=== PATIENT | male | born 1975 | race Caucasian/White ===

== ENCOUNTER 2024-03-21 00:30 | Observation (INO) | payer OTHER ==
[2024-03-21] MEDS ORDERED: Ondansetron ODT 4 MG TAB PO PRN (01:58)
[2024-03-21] MEDS ORDERED: Acetaminophen 325 MG TAB PO PRN (01:58)
[2024-03-21 03:06] VITALS: BMI 31.0
[2024-03-21] MEDS ORDERED: Acetaminophen/Codeine 30-300mg Tablet PO PRN (03:25)
[2024-03-21] MEDS ORDERED: traMADol HCl 50 MG TAB PO PRN (03:25)
[2024-03-21] MEDS ORDERED: Dextrose 5% in Water 1,000 ML IV PRN (03:26)
[2024-03-21] MEDS ORDERED: Insulin Regular, Human 100 UNIT/ML 10 ML VIAL SC PRN (03:26)
[2024-03-21] MEDS ORDERED: Dextrose 50% Abboject 50 ML SYRINGE SLOW IVP PRN (03:26)
[2024-03-21] MEDS ORDERED: Glucagon 1 MG/ML KIT IM PRN (03:26)
[2024-03-21] MEDS: Ondansetron ODT 4 MG TAB PO SCH (05:36)
[2024-03-21 05:41] LABS: #Basophils 0.04 10x3/uL (0.0-0.2); %Basophils 0.6 % (0.0-1.0); %Eosinophils 3.1 % (0.0-10.0); %Lymphocytes 24.2 % (21.0-51.0); %Monocytes 8.2 % (0.0-10.0); %Neutrophils 63.6 % (42.0-75.0); Hematocrit 33.3 % (42.0-52.0); Hemoglobin 10.4 g/dL (14.0-18.0); Mean Corpuscular HGB CONC 31.2 g/dL (32.0-36.0); Mean Platelet Volume 10.5 fL (7.4-10.4); Platelet Count 362 10x3/uL (130-400); RBC Distribution Width 14.9 % (11.5-14.5); Red Blood Cell (RBC) Count 4.16 mill/uL (4.70-6.10)
[2024-03-21 06:46] LABS: ALT (SGPT) 34 U/L (8-55); AST (SGOT) 23 U/L (5-34); Albumin 3.6 g/dL (3.5-5.0); Alkaline Phosphatase 60 U/L (40-110); Anion Gap 14 mmol/L (10-20); BUN (Urea Nitrogen) 17 mg/dL (8.9-20.6); Bilirubin, Total 0.2 mg/dL (0.2-1.2); Calc. Creatinine Clearance 93 mL/min (70-130); Calcium 8.7 mg/dL (7.8-10.44); Carbon Dioxide 26 mmol/L (22-29); Chloride 106 mmol/L (98-107); Estimated GFR 67; Globulin 2.7 g/dL (2.4-3.5); Glucose 131 mg/dL (70-105); Potassium 3.7 mmol/L (3.5-5.1); Protein, Total 6.3 g/dL (6.0-8.3); Sodium 142 mmol/L (136-145)
[2024-03-21] MEDS ORDERED: Heparin 5,000 UNITS/ML VIAL SC SCH (09:00)
[2024-03-21] MEDS ORDERED: Famotidine 20 MG TAB PO SCH (09:00)
[2024-03-21] MEDS ORDERED: Insulin Glargine 30 UNITS/0.3 ML VIAL SC SCH (09:00)
[2024-03-21] MEDS: Methocarbamol 500 MG TAB PO SCH (10:23)
[2024-03-21] MEDS: Amlodipine 10 MG TAB PO SCH (10:23)
[2024-03-21] MEDS: Atorvastatin Calcium 40 MG TAB PO SCH (10:23)
[2024-03-21] MEDS: Lisinopril 20 MG TAB PO SCH (10:24)
[2024-03-21] MEDS: hydrALAZINE 25 MG TAB PO SCH (10:24)
[2024-03-21] MEDS: Hydrochlorothiazide 25 MG TAB PO SCH (10:24)
[2024-03-21] MEDS: Gabapentin 400 MG CAP PO SCH (10:25)
[2024-03-21] MEDS: Pantoprazole DR 40 MG TAB PO SCH (10:25)
[2024-03-21] MEDS: Insulin Glargine 30 UNITS/0.3 ML VIAL SC SCH (10:25)
[2024-03-21] MEDS: Carvedilol 3.125 MG TAB PO SCH (10:31)
[2024-03-21] MEDS: cloNIDine 0.1mg/24 Hour PATCH TD SCH (10:32)
[2024-03-21] MEDS: metFORMIN 500 MG TAB PO SCH (10:32)
[2024-03-21] MEDS: Lidocaine 4% Patch TD SCH (12:10)
[2024-03-21] MEDS: Insulin Regular, Human 100 UNIT/ML 10 ML VIAL SC PRN (12:10)
[2024-03-21 13:51] VITALS: BP 159/82; TEMP 98.8
[2024-03-21] MEDS ORDERED: Montelukast Sodium 10 mg Tablet PO SCH (21:00)
[2024-03-21] MEDS ORDERED: LIDOCAINE Patch Removal TOP SCH (23:45)
== END 2024-03-21 13:39 | disposition home or self-care (01) ==
LOC: MSONC 01:45
PROVIDERS: ADMIT Student in an Organized Health Care Education/Training Program; ATTEND Student in an Organized Health Care Education/Training Program
DX: M54.9 Dorsalgia, unspecified (principal); E11.319 Type 2 diabetes mellitus with unspecified diabetic retinopathy without macular edema; E78.5 Hyperlipidemia, unspecified; E11.22 Type 2 diabetes mellitus with diabetic chronic kidney disease; I12.9 Hypertensive chronic kidney disease with stage 1 through stage 4 chronic kidney disease, or unspecified chronic kidney disease; N18.9 Chronic kidney disease, unspecified; N17.9 Acute kidney failure, unspecified; F17.210 Nicotine dependence, cigarettes, uncomplicated; F12.20 Cannabis dependence, uncomplicated; Z90.49 Acquired absence of other specified parts of digestive tract; Z96.643 Presence of artificial hip joint, bilateral; Z79.84 Long term (current) use of oral hypoglycemic drugs; Z79.4 Long term (current) use of insulin; Z79.899 Other long term (current) drug therapy
CPT/HCPCS: 36415; 36416; 80053; 82010; 85025; G0378; J1815